=== PATIENT | female | born 1985 | race Two or more races ===

== ENCOUNTER 2017-06-22 23:33 | Emergency (ER) | payer MEDICAID, OTHER ==
[~2017-06-22] VITALS: Ht 157.5 cm; Wt 73.5 kg
[2017-06-22 23:45] VITALS: BP 138/91
== END 2017-06-23 07:26 | disposition left against medical advice (07) ==
LOC: EDBD 23:33 → ER 23:38
DX: R20.0 Anesthesia of skin (principal); Z53.21 Procedure and treatment not carried out due to patient leaving prior to being seen by health care provider